=== PATIENT | female | born 1995 | race Native Hawaiian/Other Pacific Islander ===

== ENCOUNTER 2021-12-26 18:01 | Emergency (ER) | payer OTHER ==
[~2021-12-26] VITALS: Ht 160 cm; Wt 99.8 kg
[2021-12-26 18:05] VITALS: TEMP 97.8
[2021-12-26 18:42] LABS: PLATELET COUNT 145 K/uL (152-353)
[2021-12-26 18:48] LABS: POTASSIUM 3.8 mmol/L (3.6-5.2)
[2021-12-26] MEDS ORDERED: ONDA4TAB3 PO (19:48)
[2021-12-26] MEDS ORDERED: PHEN200T3 PO (19:48)
[2021-12-26] MEDS ORDERED: MACROBID100 MG PO (19:48)
[2021-12-26 20:30] VITALS: BP 128/76
== END 2021-12-26 20:30 | disposition home or self-care (01) ==
LOC: ED 18:01
PROVIDERS: Emergency Medicine Emergency Medical Services
DX: N30.01 Acute cystitis with hematuria (principal); N23 Unspecified renal colic
CPT/HCPCS: 36415; 80048; 81002; 81015; 85027; 87086; 87088; 96360; 96374; 96375; 99284; J0696; J1885

== ENCOUNTER 2021-12-29 16:36 | Emergency (ER) | payer OTHER ==
[~2021-12-29] VITALS: Ht 160 cm; Wt 104.8 kg
[~2021-12-29 16:36] MED LIST: MACROBID100 MG PO; ONDA4TAB3 PO; PHEN200T3 PO
[2021-12-29 18:30] VITALS: BP 110/77; TEMP 100.4
[2021-12-29 19:14] LABS: POTASSIUM 3.5 mmol/L (3.6-5.2)
[2021-12-29 19:18] LABS: PLATELET COUNT 111 K/uL (152-353)
== END 2021-12-29 20:16 | disposition home or self-care (01) ==
LOC: ED 16:36
PROVIDERS: Emergency Medicine
DX: B34.9 Viral infection, unspecified (principal); R51.9 Headache, unspecified; U07.1 COVID-19
CPT/HCPCS: 36415; 80048; 85027; 87635; 96372; 99283; J3030; U0003

== ENCOUNTER 2022-10-04 05:33 | Emergency (ER) | payer OTHER ==
[~2022-10-04] VITALS: Ht 160 cm; Wt 99.8 kg
[2022-10-04 06:26] VITALS: BP 135/93; TEMP 98.1
== END 2022-10-04 06:26 | disposition home or self-care (01) ==
LOC: ED 05:33
DX: R21 Rash and other nonspecific skin eruption (principal); M19.90 Unspecified osteoarthritis, unspecified site; E66.9 Obesity, unspecified
CPT/HCPCS: 96372; 99282; 99283; J1200; J2930

== ENCOUNTER 2022-11-16 18:05 | Emergency (ER) | payer OTHER ==
[~2022-11-16] VITALS: Ht 160 cm; Wt 99.8 kg
[2022-11-16 18:20] VITALS: BP 117/91; TEMP 98.2
[2022-11-16 19:50] LABS: PLATELET COUNT 143 K/uL (152-353)
== END 2022-11-16 21:45 | disposition home or self-care (01) ==
LOC: ED 18:05
PROVIDERS: Family Medicine
DX: N39.0 Urinary tract infection, site not specified (principal); K31.84 Gastroparesis; E87.6 Hypokalemia; F41.9 Anxiety disorder, unspecified; F17.210 Nicotine dependence, cigarettes, uncomplicated
CPT/HCPCS: 80053; 80307; 81000; 82150; 83690; 85027; 87077; 87086; 87088; 87186; 93005; 96361; 96365; 96375; 99285; J0696; J2405